=== PATIENT | male | born 1945 ===

== ENCOUNTER 2018-09-28 17:03 | Outpatient (REF) | payer MEDICARE, OTHER, SELFPAY ==
[2018-09-28 21:18] LABS: Bacteria Rare HPF (Negative); C & S Indicated? No; Crystals Negative HPF (Negative); Epithelial Cells Rare HPF (Negative); Mucus Negative (Negative); RBC 0-2 (0-2); WBC Negative HPF (0-5)
== END 2018-09-28 17:23 ==
LOC: NCHCN 17:03
PROVIDERS: PCP Family Medicine; Visit Provider Nurse Practitioner Family
DX: R35.0 Frequency of micturition (principal)
CPT/HCPCS: 81015